=== PATIENT | male | born 1955 | race Caucasian/White ===

== ENCOUNTER 2022-06-19 21:58 | Emergency (ER) | payer MEDICARE ==
[2022-06-19 23:25] LABS: BILIRUBIN,URINE NEGATIVE (NEGATIVE); GLUCOSE, URINE (UA) NEGATIVE (NEGATIVE); KETONES,URINE (UA) 15 mg/dL (NEGATIVE); LEUKOCYTE ESTERASE, URINE TRACE (NEGATIVE); NITRITE,URINE NEGATIVE (NEGATIVE); OCCULT BLOOD,URINE LARGE (NEGATIVE); PH,URINE 5.5 PH (5.0-7.5); PROTEIN,URINE NEGATIVE (NEGATIVE); UROBILINOGEN,URINE 0.2 (NORMAL) E.U./dL (NORMAL)
[2022-06-19 23:28] LABS: CLARITY,URINE HAZY (CLEAR)
[2022-06-19 23:33] LABS: BACTERIA,URINE Rare /HPF (None Seen); SQUAMOUS EPITHELIAL CELL,UR NONE SEEN (<= Few)
[2022-06-20 00:55] LABS: BASOPHILS # (AUTO) 0.1 10^3/uL (0.0-0.1); BASOPHILS % (AUTO) 0.3 %; EOSINOPHILS % (AUTO) 0.1 %; HCT - HEMATOCRIT 45.3 % (42.0-52.0); HGB - HEMOGLOBIN 14.8 g/dL (14.0-18.0); LYMPHOCYTES # (AUTO) 4.1 10^3/uL (1.5-3.5); LYMPHOCYTES % (AUTO) 20.4 %; MEAN CORPUSCULAR HEMOGLOBIN 29.2 pg (27.0-31.0); MEAN CORPUSCULAR HGB CONC 32.7 g/dL (32.0-36.0); MEAN CORPUSCULAR VOLUME 89.5 fL (80.0-94.0); MEAN PLATELET VOLUME 10.4 fL (7.4-11.4); MONOCYTES # (AUTO) 0.9 10^3/uL (0.0-1.0); MONOCYTES % (AUTO) 4.6 %; NEUTROPHILS # (AUTO) 14.8 10^3/uL (1.5-6.6); NEUTROPHILS % (AUTO) 74.3 %; PLT - PLATELET COUNT 227 10^3/uL (130-450); RED BLOOD COUNT 5.06 10^6/uL (4.70-6.10); RED CELL DISTRIBUTION WIDTH 13.6 % (12.0-15.0)
[2022-06-20 02:12] LABS: ALBUMIN 3.8 g/dL (3.2-5.5); BILIRUBIN,TOTAL 1.4 mg/dL (0.2-1.0); CALCIUM 8.7 mg/dL (8.5-10.3); CREATININE 1.4 mg/dL (0.6-1.2); POTASSIUM 3.7 mmol/L (3.5-5.0); TOTAL PROTEIN 7.5 g/dL (6.7-8.2)
--- NOTE | 2022-06-20 02:36 | ED Physician Documentation ---
History of Present Illness - Stated complaint Stated Complaint: MALE /FEVER - Chief complaint Chief Complaint: Fever - Additonal information Additional information: Patient is 67-year-old male presenting to the emergency department with concern for leukocytosis in setting of urinary tract infection. Reports that 3/ underwent prostate biopsy. Yesterday began developing dysuria and reported fever and chills. Was seen by his urologist today and was referred to urgent care. He received IM Rocephin and was started on sulfamethoxazole trimethoprim for urinary tract infection. He received a telephone call from urgent care telling him that he had an elevated white blood cell count and was referred to the emergency department for evaluation. Currently he reports feeling well. He denies any chest pain, shortness of breath, nausea, vomiting, diarrhea, constipation. Review of Systems Constitutional: reports: Fever, Chills Eyes: denies: Loss of vision Ears: denies: Loss of hearing Nose: denies: Rhinorrhea / runny nose Throat: denies: Dental pain / toothache Cardiac: denies: Chest pain / pressure Respiratory: denies: Dyspnea GI: denies: Abdominal Pain : reports: Dysuria Skin: denies: Rash Musculoskeletal: denies: Neck pain Neurologic: denies: Generalized weakness PD PAST MEDICAL HISTORY - Allergies Allergies/Adverse Reactions: Allergies Allergy/AdvReac Type Severity Reaction Status Date / Time lisinopril Allergy Unknown Verified 06/19/22 23:20 iodine AdvReac Emesis Verified 06/19/22 23:20 PD ED PE NORMAL - Vitals Vital signs reviewed: Yes (Afebrile, normotensive) - General General: Alert and oriented X 3, No acute distress, Well developed/nourished - HEENT HEENT: Atraumatic, PERRL, EOMI, Ears normal, Moist mucous membranes, Pharynx benign - Neck Neck: Supple, no meningeal sign - Cardiac Cardiac: RRR, No gallop, Strong equal pulses - Respiratory Respiratory: No respiratory distress, Clear bilaterally - Abdomen Abdomen: Normal bowel sounds, Soft, Non tender - Male Male : Deferred - Rectal Rectal: Deferred - Back Back: No CVA TTP - Derm Derm: Normal color - Extremities Extremities: No deformity - Neuro Neuro: Alert and oriented X 3, 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, No motor deficit, No sensory deficit, Normal speech Results - Vitals Vitals: Vital Signs - 24 hr 06/19/22 22:14 Temperature 37.1 C Heart Rate 96 Respiratory 22 Rate Blood Pressure 122/93 H O2 Saturation 100 Oxygen O2 Source Room air - Labs Labs: Laboratory Tests 06/19/22 06/20/22 06/20/22 23:15 00:50 00:50 WBC 20.0 H RBC 5.06 Hgb 14.8 Hct 45.3 MCV 89.5 MCH 29.2 MCHC 32.7 RDW 13.6 Plt Count 227 MPV 10.4 Neut # (Auto) 14.8 H Lymph # (Auto) 4.1 H [place] # (Auto) 0.9 Eos # (Auto) 0.0 Baso # (Auto) 0.1 Absolute Nucleated RBC 0.00 Nucleated RBC % 0.0 Sodium 133 L Potassium 3.7 Chloride 95 L Carbon Dioxide 27 Anion Gap 11.0 BUN 25 H Creatinine 1.4 H Estimated GFR (MDRD) 50 L Glucose 120 H Lactic Acid Calcium 8.7 Total Bilirubin 1.4 H AST 30 ALT 26 Alkaline Phosphatase 71 Total Protein 7.5 Albumin 3.8 Globulin 3.7 Albumin/Globulin Ratio 1.0 Lipase 30 Urine Color YELLOW Urine Clarity HAZY Urine pH 5.5 Ur Specific [place] >=1.030 H Urine Protein NEGATIVE Urine Glucose (UA) NEGATIVE Urine Ketones 15 H Urine Occult Blood LARGE H Urine Nitrite NEGATIVE Urine Bilirubin NEGATIVE Urine Urobilinogen 0.2 (NORMAL) Ur Leukocyte Esterase TRACE H Urine RBC 6-10 H Urine WBC 6-10 H Ur Squamous Epith Cells NONE SEEN Urine Bacteria Rare Ur Microscopic Review INDICATED Urine Culture Comments INDICATED 06/20/22 01:48 WBC RBC Hgb Hct MCV MCH MCHC RDW Plt Count MPV Neut # (Auto) Lymph # (Auto) [place] # (Auto) Eos # (Auto) Baso # (Auto) Absolute Nucleated RBC Nucleated RBC % Sodium Potassium Chloride Carbon Dioxide Anion Gap BUN Creatinine Estimated GFR (MDRD) Glucose Lactic Acid 1.1 Calcium Total Bilirubin AST ALT Alkaline Phosphatase Total Protein Albumin Globulin Albumin/Globulin Ratio Lipase Urine Color Urine Clarity Urine pH Ur Specific [place] Urine Protein Urine Glucose (UA) Urine Ketones Urine Occult Blood Urine Nitrite Urine Bilirubin Urine Urobilinogen Ur Leukocyte Esterase Urine RBC Urine WBC Ur Squamous Epith Cells Urine Bacteria Ur Microscopic Review Urine Culture Comments PD Medical Decision Making - ED course Complexity details: reviewed results, d/w patient ED course: Patient 67-year-old male presenting to the emergency department with concern for leukocytosis in setting of recent diagnosis of urinary tract infection as well asRecent prostate biopsy. Afebrile, hemodynamically stable on arrival to the emergency department. Physical exam demonstrated an obese but otherwise well-appearing male. He had clear aeration in all lung danielle and no abdominal tenderness. His urine analysis did have indications of infection and this will be sent for culture. He did report that he had been told that he had a white blood cell count of 20.5 via urgent care. I did obtain a CBC which did demonstrate a white blood cell count of 20.0 with bandemia consistent with acute infection. He did not have other identifiable SIRS criteria and. He was tolerating p.o. intake well in the emergency department. He has been treated previously with IM Rocephin and is currently on a course of sulfamethoxazole trimethoprim. I did obtain blood cultures as well as a noncontrast CT scan of his abdomen and pelvis which did not demonstrate any abscess but did show some fat stranding around the prostate and ureters, either representing acute prostatitis/Seminal vesicles, possibly representing acute prostatitis or as a post procedural finding. Nevertheless the patient's current course of Bactrim is an appropriate medication to treat this. He is otherwise well-appearing. I will discharge at this time for follow-up with primary care/urology with return precautions given. Departure - Departure Disposition: 01 Home, Self Care Clinical Impression: Prostatitis, Leukocytosis Instructions: ED Prostatitis Comments: Thank you for allowing us to care for you today at [facility]. Today in the emergency department your evaluated for any possible life- threatening medical emergency. You were found to have an elevated white blood cell count as well as some indications of infection in your urine. Your urine will be sent for culture and further testing and if there is concern for antibiotic resistance we will be contacting you directly. Your CT scan did show indications of inflammation around your prostate. Your current prescription for Bactrim, also known as sulfamethoxazole trimethoprim is an appropriate medication to treat this. I would like you to follow-up with both your primary care doctor and your urologist. If it anytime you develop new or worsening symptomsPlease do not hesitate to return.
[2022-06-20 03:28] VITALS: BP 111/54
--- NOTE | 2022-06-20 08:42 | CT Report ---
PROCEDURE: ABDOMEN/PELVIS WO INDICATIONS: Pelvic pain, s/p prostate biopsy TECHNIQUE: Noncontrast 5 mm thick sections acquired from the diaphragms to the symphysis. 5 mm coronal and sagi ttal reformats were then performed. For radiation dose reduction, the following was used: automated exposure control, adjustment of mA and/or kV according to patient size. COMPARISON: None. FINDINGS: Image quality: Excellent. ABDOMEN: Lung bases: There are at least 3 solid nodules at the right posterior lung base with slightly irregul ar margins. The 3 largest range from 0.9 cm to 1.1 cm. Solid organs: Liver and spleen are normal in size. Gallbladder contains a 2.5 cm peripherally calci fied stone. No gallbladder wall thickening or pericholecystic fluid. Pancreas is normal in contours. There is diffuse amorphous low-density thickening of the left adrenal gland. The right is also sligh tly thickened. No discrete masses.. Kidneys are normal in size, without hydronephrosis. There is a 6 .5 mm nonobstructing stone in the lower pole of the right kidney. No hydroureter or ureteral calcific ations. Peritoneum and bowel: Unenhanced bowel loops demonstrate normal wall thickness and caliber. No free fluid or air. Nodes and vessels: No retroperitoneal or mesenteric adenopathy by size criteria. Aorta and inferior vena cava are normal in caliber. Miscellaneous: No ventral hernias. PELVIS: Genitourinary: The prostate gland is mildly diffusely enlarged. There is minor fat stranding in the a nterior perirectal fat. No significant perirectal fluid or mass to suggest hematoma. The urinary blad germain is decompressed and the wall is normal thickness decompression. Miscellaneous: There are several enlarged lymph nodes bilaterally in the iliac chains and along the p elvic sidewall. One of the largest in the left external iliac chain measures 1.7 cm in short axis (), and one on the right measures 1.5 cm short axis, . Bones: No suspicious bony lesions. No vertebral body compression fractures. IMPRESSION: 1. Mildly enlarged prostate gland with expected mild postbiopsy inflammation, but no evidence of shahzad cent hematoma. 2. There is pelvic adenopathy and right lower lung nodules suspicious for metastatic disease. 3. Nonobstructing right renal stone. 4. Cholelithiasis. 5. Final interpretation concordant with preliminary report. Additional findings not included in the p reliminary interpretation were called to Dr Rodriguez in the emergency room at 0832 hours. Reviewed by: Sabrina Graff MD on 06/20/2022 8:41 AM PDT Approved by: Sabrina Graff MD on 06/20/2022 8:41 AM PDT Station ID: [id number]
--- NOTE | 2022-06-20 08:46 | ED Physician Documentation ---
ED Addendum - Addendum Addendum: 06/20/22 08:44 Follow-up on the radiology report. Over read or secondary reading of the CT scan from last night by the morning radiologist wanted to emphasize the findings of some nodules in the lower lung that had were seen on the prior report and also add that there is pelvic adenopathy noted. That had not been mentioned on the prior report. These findings in union with the prostatitis would lead to concern for metastatic disease. The radiologist recommended follow-up. The patient is currently status post prostate biopsy so presumably the patient is currently being evaluated for prostatic cancer. The patient's primary care and urologist would want to be sure to read the body of the CT report as the lung nodules were not mentioned on the summary.
== END 2022-06-20 02:45 | disposition home or self-care (01) ==
LOC: ED 21:58
DX: N39.0 Urinary tract infection, site not specified (principal); N41.9 Inflammatory disease of prostate, unspecified; D72.829 Elevated white blood cell count, unspecified
CPT/HCPCS: 36415; 80053; 81001; 81003; 83605; 83690; 85025; 87040; 87086; 99283; 99284

== ENCOUNTER 2022-08-20 08:00 | Outpatient (CLI) | payer MEDICARE ==
[2022-08-20 14:34] LABS: BILIRUBIN,URINE NEGATIVE (NEGATIVE); GLUCOSE, URINE (UA) NEGATIVE (NEGATIVE); KETONES,URINE (UA) NEGATIVE (NEGATIVE); LEUKOCYTE ESTERASE, URINE NEGATIVE (NEGATIVE); NITRITE,URINE NEGATIVE (NEGATIVE); OCCULT BLOOD,URINE MODERATE (NEGATIVE); PROTEIN,URINE NEGATIVE (NEGATIVE); UROBILINOGEN,URINE 0.2 (NORMAL) E.U./dL (NORMAL)
[2022-08-20 14:46] LABS: BACTERIA,URINE None Seen /HPF (None Seen); CLARITY,URINE CLEAR (CLEAR); MUCUS,URINE Few Strands; SQUAMOUS EPITHELIAL CELL,UR NONE SEEN (<= Few)
== END 2022-08-20 23:59 | disposition home or self-care (01) ==
LOC: LAB.R 08:00
PROVIDERS: ATTEND Orthopaedic Surgery Adult Reconstructive Orthopaedic Surgery
DX: N39.0 Urinary tract infection, site not specified (principal)
CPT/HCPCS: 81001; 87086

== ENCOUNTER 2022-08-25 19:24 | Emergency (ER) | payer MEDICARE ==
--- NOTE | 2022-08-25 22:54 | ED Physician Documentation ---
History of Present Illness - Stated complaint Stated Complaint: SWOLLEN HIP - Chief complaint Chief Complaint: Ext Problem - History obtained from History obtained from: Patient - Additonal information Additional information: The patient comes to the emergency department chief complaint of right lower extremity swelling. He states that he had a hip replacement a week ago today and that he did not have that much swelling after the initial surgery. However, about 4 days later, he began to notice that he was having more swelling in his right lower extremity. He states seems to be increasing who is just worried that he might have a blood clot. He also has noticed some ecchymosis that has surfaced in his popliteal area and down along his lateral right ankle. Patient denies injury since the surgery. He states he has been getting up and around quite a bit. He states he has been confused as to whether or not to elevate his leg, as his physical therapist told him that he should not be spending too much time down with his legs elevated. No other complaints at this time. PD PAST MEDICAL HISTORY - Allergies Allergies/Adverse Reactions: Allergies Allergy/AdvReac Type Severity Reaction Status Date / Time lisinopril Allergy Unknown Verified 06/19/22 23:20 iodine AdvReac Emesis Verified 06/19/22 23:20 PD ED PE NORMAL - Vitals Vital signs reviewed: Yes - General General: Alert and oriented X 3, No acute distress, Well developed/nourished - HEENT HEENT: Atraumatic, PERRL, EOMI, Moist mucous membranes - Neck Neck: Supple, no meningeal sign - Cardiac Cardiac: Strong equal pulses - Respiratory Respiratory: No respiratory distress - Derm Derm: Warm and dry, No rash, Other (Mild erythema right lower extremity skin without streaking or clear demarcation. Surgical wound clean dry and intact) - Extremities Extremities: No deformity, Other (Moderate edema right leg. No calf tenderness. Nearly full range of motion.) - Neuro Neuro: Alert and oriented X 3 - Psych Psych: Normal mood, Normal affect Results - Vitals Vitals: Vital Signs - 24 hr 08/25/22 08/26/22 19:37 01:12 Temperature 36.3 C L Heart Rate 72 73 Respiratory 16 18 Rate Blood Pressure 119/54 L 122/66 O2 Saturation 99 100 Oxygen O2 Source Room air - Rads (name of study) Ultrasound right lower extremity Relevant Findings:: Final report received, See rad report (Negative) PD Medical Decision Making - ED course Complexity details: reviewed results, re-evaluated patient, considered differential, d/w patient ED course: Patient was evaluated with an ultrasound of his right lower extremity. The patient's ultrasound was negative. I discussed with him that he most likely just has swelling from using the leg in the immediate postop period. We have discussed that this is not a bad thing and has a normal expectation with increased use. We have discussed elevation when he is sitting or laying but also, the need to be up and about wherever possible. We discussed the usual indications for return. Departure - Departure Disposition: 01 Home, Self Care Clinical Impression: Dependent edema Post-operative complication Qualifiers: Surgical complication system/body Area: musculoskeletal system Surgical complication type: unspecified Procedure type: musculoskeletal Qualified Code(s): M96.89 - Other intraoperative and postprocedural complications and disorders of the musculoskeletal system Condition: Stable Instructions: ED Leg Swelling Unilateral Comments: Your ultrasound looks goodthere is no clot. Most likely, the swelling in your leg is due to the amount of use its been getting in the postoperative period. This is not necessarily a bad thing and is expected. You should definitely keep getting up and around, though when you are sitting or laying down, you should try to have your leg propped up as best as possible. Please follow-up with your orthopedist in physical therapist as planned. Discharge Date/Time: 08/26/22 01:16
--- NOTE | 2022-08-26 01:06 | Ultrasound Report ---
PROCEDURE: Duplex Ext Veins Right INDICATIONS: swelling, post-hip replacement TECHNIQUE: Real-time imaging, as well as color and pulse Doppler interrogation, were performed of the lower extr emity deep veins from the inguinal ligament to the popliteal fossa. COMPARISON: None. FINDINGS: The deep veins are normally compressible, and free of intraluminal thrombus. Color and pu lse Doppler demonstrate normal phasic intraluminal flow. There is normal augmentation response to di stal compression maneuver. IMPRESSION: 1. No evidence of deep venous thrombosis in the right lower extremity. Reviewed by: Mark Maguire MD on 08/26/2022 1:05 AM PDT Approved by: Mark Maguire MD on 08/26/2022 1:05 AM PDT Station ID: [id number]
[2022-08-26 01:17] VITALS: BP 122/66
== END 2022-08-26 01:16 | disposition home or self-care (01) ==
LOC: ED 19:24
DX: R60.0 Localized edema (principal); M96.89 Other intraoperative and postprocedural complications and disorders of the musculoskeletal system
CPT/HCPCS: 99282; 99284